=== PATIENT | female | born 1960 | race Caucasian/White ===

== ENCOUNTER 2021-05-09 12:12 | Outpatient (CLI) | payer OTHER, SELFPAY ==
--- NOTE | 2021-05-09 13:02 | ECG_ITS ---
Measurements Intervals [place] Rate: 64 P: 64 WA: 171 QRS: -17 QRSD: 102 T: 10 QT: 393 QTc: 406 Interpretive Statements SINUS RHYTHM POSSIBLE LEFT ATRIAL ENLARGEMENT [-0.1mV P WAVE IN V1/V2] INCOMPLETE RIGHT BUNDLE BRANCH BLOCK [90+ ms QRS DURATION, TERMINAL R IN V1/V2, 40+ ms S IN I/aVL/V4/V5/V6] NO PREVIOUS ECG AVAILABLE FOR COMPARISON Electronically Signed On 05-09-2021 14:35:16 CDT by Barak Emerson M.D.
[2021-05-09 14:35] LABS: Anion Gap 4 mmol/L (8-16); Blood Urea Nitrogen 20 mg/dL (7-17); Calcium 9.3 mg/dL (8.4-10.2); Carbon Dioxide 31 mmol/L (22-30); Chloride 104 mmol/L (98-107); Estimated Glomerular Filt Rate > 60; Glucose 99 mg/dL (65-110); Potassium 4.2 mmol/L (3.4-5.0); Sodium 139 mmol/L (137-145)
== END 2021-05-09 12:13 | disposition home or self-care (01) ==
LOC: ANHSURGERY 12:16
PROVIDERS: Anesthesiology; PCP Family Medicine; Visit Provider Surgery Plastic and Reconstructive Surgery
DX: Z01.818 Encounter for other preprocedural examination (principal); E11.9 Type 2 diabetes mellitus without complications; I45.19 Other right bundle-branch block
CPT/HCPCS: 36415; 80048; 93005

== ENCOUNTER 2021-05-17 00:20 | Day surgery (SDC) | payer OTHER, SELFPAY ==
[2021-05-05 14:31] VITALS: BMI 25.4
--- NOTE | 2021-05-05 14:36 | SUR.PREOP ---
Report to the Outpatient Waiting Room, entrance under the green pavilion located off [facility], at time 12:15_ on date 05/17/21_. OR Time: __14:15. - You and your visitor will be asked a series of questions to screen for COVID 19 for your protection. - A mask is required within the hospital. Preoperative COVID Testing Requirements: No COVID Test needed if: (proof is required; if not received patient will have Rapid Test prior to entry) - Patient has received COVID Vaccine at least 14 days prior to procedure date or - Patient has positive COVID test result within last 90 days of surgery date. COVID Test needed if above criteria is not met If not COVID vaccinated a COVID test must be conducted within 72 hours of surgery and patient is asked to isolate self from time of testing until procedure. You will go to the [facility] for your COVID testing. The [facility] Testing site is located at the corner of [address] [facility]. You will only be called if COVID results are positive and your surgeon may reschedule your elective surgery date. Patients may have clear liquids (water, carbonated beverages, clear teas, apple juice) until 3 hours prior to surgery with a maximum of 20 ounces. - No food from midnight until time of surgery - Infants may have breast milk until 4 hours before surgery, formula 6 hours prior to surgery. - Children will be allowed to drink immediately following surgery. If applicable, please bring a bottle or sippy cup to assist with drinking. Juice, water, soda, and popsicles are readily available. For infants on formula, please bring formula the day of surgery. Pacifiers are allowed. Take the following medications with a SIP of water the morning of surgery: _liothyronine Medications to discontinue per physician n/a Date to take last dose__n/a Please no make-up, nail english, hairspray, perfume, deodorant, or body powder the day of surgery. No jewelry (including any body piercings) or valuables the day of surgery, leave them at home. Please take a shower or bath the night before, or the morning of, surgery with an antibacterial soap. Wear comfortable, loose fitting clothing. Children are encouraged to wear pajamas. - Jewelry must be removed prior to entering the operating room. Rings and piercings that are not removed may be cut off. - The hospital will not accept responsibility for valuables. - Please leave all valuables, including medications, at home the day of surgery. If you are going home after surgery, a licensed otr driver must drive you home. - NO public transportation without another adult. - We recommend that an adult stay with you for 24 hours following discharge. - We also recommend that you do not drive, make important decision, drink alcoholic beverages, or take any drugs that were not prescribed by your health care provider for at least 24 hours after your discharge time. For Pediatric surgeries, we recommend two adults accompany the child home (only one inside the building at this time). One visitor will be allowed to accompany the patient into the hospital. Patients visitor will be instructed to remain with patient at all times or leave the building. We will allow the visitor to come back to the postoperative area when patient is ready. Follow any additional instructions given to you from your surgeon. Telephone instructions given to _rock page__and asked if any additional questions and then verbalized understanding. Patient advised to call surgeon office or pre surgery nurse liaison [phone] if any additional questions.
[2021-05-17] VITALS (9 sets, daily range): BP systolic 122–180; BP diastolic 58–90; PULSE 68–82; RESP 14–18; TEMP 36.4–37.1; O2SAT 92–100; BMI 25.4
--- NOTE | 2021-05-17 12:38 | WPDHPUPDATE1 ---
History and Physical Update Update Date/Time: 05/17/21 12:38 History and Physical has been reviewed, including an updated exam of the patient. There are NO changes in the patient's condition. Risks, benefits, and alternatives have been discussed and questions answered. Patient agrees to proceed with procedure.
[2021-05-17 12:39] LABS: Urine Cotinine NEGATIVE
--- NOTE | 2021-05-17 12:43 | P.PNAN_ITS ---
Anes - Initial Pre Proc Eval Procedure: Operation Date: 05/17/21 14:15 Proposed Procedures p Removal Bilateral Breast Implants, - Tye Nixon MD s Bilateral Breast Mastopexy - Tye Nixon MD Date/Time: 05/17/21 12:43 Surgeon: Tye Nixon MD Pre Op Diagnosis: hx of breast augmentation Patient Data Age: 61 Gender: F Height: 1.73 m Weight: 75.9 kg Allergies Allergy/AdvReac Type Severity Reaction Status Date / Time Penicillins Allergy Intermediate Hives Verified 05/17/21 12:37 Home Medications Medication Instructions Recorded Confirmed Type liothyronine 5 mcg tablet 5 mcg PO DAILY tablet 11/29/20 05/17/21 History metformin 500 mg tablet,extended 500 mg PO BID 11/29/20 05/17/21 History release 24 hr docusate sodium 100 mg capsule 100 mg PO DAILY #14 cap 05/12/21 Rx ondansetron 4 mg disintegrating 4 mg PO Q8H #21 tablet 05/12/21 Rx tablet hydrocodone 5 mg-acetaminophen 325 1 tablet PO Q6H PRN #30 tablet 05/13/21 05/13/21 Rx mg tablet Laboratory Tests 05/17/21 12:21 Cotinine Negative Patient hx anesthesia problems: none Family hx anesthesia problems: none Results Review: All pre-operative results and documents have been reviewed as part of the pre-operative evaluation. [facility] Past Medical History Medical History Diabetes Hypothyroid Social History Social History Smoking status: Never smoker Alcohol intake: current Drinks per week: 3 Alcohol use details: weekends Living arrangements: with family Spiritual care concerns: No Anes - Eval Final PreProcedure Day of Procedure 05/17/21 12:43 Patient weight: normal Heart: regular rate and rhythm Lungs: clear to auscultation Airway: Mallampati scale class II Neurological: alert and oriented Last oral intake: >/= 8 hours ASA classification: II Emergent: no Anesthetic plan: proceed Anesthesia type and monitoring: general LMA and standard monitoring Results Review: All pre-operative results and documents have been reviewed as part of the pre-operative evaluation. Informed Consent: The patient's anesthetic plan and its attendant risks and benefits were discussed with the patient/family/POA. Questions were solicited and answers provided to the satisfaction of the patient/family/POA.
--- NOTE | 2021-05-17 12:50 | SUR.PREOP ---
FEMALE RN IN ROOM WHILE DR HA VACA PT
--- NOTE | 2021-05-17 13:03 | W.PM.PROC2 ---
Procedure Note - Detailed Date of Procedure 05/17/21 Pre-op Diagnosis hx of breast augmentation Post-op Diagnosis Same Procedure Performed 1. Bilateral implant removal 2. Bilateral mastopexy Surgeon Tye Nixon MD Findings Inverted T Superior pedicle Description of Procedure Preoperatively the risks, benefits, alternatives were discussed in extensive detail. I wanted her to be very realistic risks as well as expectations. All questions were answered to her satisfaction. Consent obtained. She was taken to the operating room placed supine on the operating table. Anesthesia provided by anesthesiology and prepped and draped in standard sterile fashion. Surgical was taken. 1% lidocaine and 0.25% Marcaine with epinephrine was used to provide a field block. I incised vertically and dissection was continued down until the implant was identified. I incised the capsule and the implant was removed. No worrisome features. I elevated removed the majority of the anterior capsule which was sent to pathology. I tailor tacked the breast into place. Placed her in a sitting position to verify the markings. Marked out the nipple-areolar complex based on my preoperative planning and intraoperative observations of measurements which were in full agreement. This was at 38 mm. She was then placed supine. I de-epithelialized bilateral superior pedicle. De-epithelialized the inferior portion of the breast and elevated medial and lateral flaps. Tumescent was used for small volume at bilateral tail breast / anterior axillary fold for contouring. Once adequate time for hemostasis based on S.A.F.E. technique suction lipectomy was completed for total volume 60cc lipoaspirate using 4mm basket cannula. Copiously irrigated with 3 liters of saline on TUR tubing. I created auto augmentation flap which was based inferiorly and this was sutured to the chest wall with 2-0 PDS. It appeared to have good vascularity with bleeding distal edges of this autoaugmentation flap. I then tailor tacked the breast back into position. I closed along the IMF using 1 barbed suture followed by 3-0 Stratafix in a running subcuticular 4-0 Monocryl. Vertically with 2-0 PDS followed by 3-0 Monocryl in a running subcuticular 4-0 Monocryl. Around the areola with 3-0 Stratafix in a running subcuticular 4-0 Monocryl. Steri-Strips were placed. She was woken taken to PACU without difficulty. All instrument sponge counts were correct at the end of the case. Estimated Blood Loss 50 Drains No Packing No Pathology None sent Complications No immediate complications Condition Stable Disposition PACU
[2021-05-17] MEDS: LACTATED RINGERS 1,000 ML 30 ML IV CONT ×2 (13:07→15:31)
[2021-05-17 13:08] LABS: Glucose Point of Care 96 mg/dl (65-105)
[2021-05-17] MEDS: SCOPOLAMINE 1.5 MG PATCH TRANSDERM (13:11)
--- NOTE | 2021-05-17 13:15 | SUR.PREOP ---
GIVING PT IVF BOLUS 500ML PER ORDERS
[2021-05-17] MEDS: ceFAZolin 2 GM/D5W 50 ML 2 GM/50 ML BAG IVPB (13:21)
[2021-05-17] MEDS: BUPIVACAINE HCL 0.25% PF 30 ML VIAL INFILTRATE (13:30)
[2021-05-17] MEDS: TRANEXAMIC ACID 1,000MG/ISO100 1,000 MG/100 ML BAG 200 MG IVPB (13:35)
[2021-05-17] MEDS: LACTATED RINGERS IRRIG 1,000 ML, LIDOCAINE HCL 1% LOCAL INJ 50 ML, EPINEPHrine HCL INJ ... INFILTRATE (14:30)
[2021-05-17 15:46] LABS: Glucose Point of Care 118 mg/dl (65-105)
[2021-05-17] MEDS: fentaNYL CITRATE INJ (*CRX) 100 MCG/2 ML VIAL 25 MCG IV PUSH ×2 (16:10→16:19)
[2021-05-17] MEDS: oxyCODONE HCL (*CRX) 5 MG TAB IR PO (17:05)
== END 2021-05-17 18:00 | disposition home or self-care (01) ==
PROVIDERS: PCP Family Medicine; Visit Provider Surgery Plastic and Reconstructive Surgery
PROC: 0HPT0JZ Removal of Synthetic Substitute from Right Breast, Open Approach (ICD-10-PCS; CPT 19371; principal; 2021-05-17 14:15)
PROC: (CPT 19316; 2021-05-17 14:15)
DX: Z41.1 Encounter for cosmetic surgery (principal); E11.9 Type 2 diabetes mellitus without complications; E03.9 Hypothyroidism, unspecified; Z79.84 Long term (current) use of oral hypoglycemic drugs; Z79.899 Other long term (current) drug therapy
CPT/HCPCS: 19371; 19316; 80307; 82948; A9270; J0171; J0690; J1100; J1170; J2250; J2405; J2704; J3010; J7120

== ENCOUNTER 2022-10-09 12:21 | Outpatient (NON) | payer BC, SELFPAY | END 2022-10-09 12:22 | disposition home or self-care (01) | PROVIDERS: PCP Family Medicine; Visit Provider Nurse Practitioner | DX: C44.519 Basal cell carcinoma of skin of other part of trunk (principal) | CPT/HCPCS: 88305 ==

== ENCOUNTER 2022-11-20 07:00 | Outpatient (NON) | payer BC, SELFPAY | END 2022-11-20 07:01 | disposition home or self-care (01) | LOC: ANHLAB 11-22 12:10 | PROVIDERS: PCP Family Medicine; Visit Provider Nurse Practitioner | DX: C44.91 Basal cell carcinoma of skin, unspecified (principal) | CPT/HCPCS: 88305 ==

== ENCOUNTER 2022-11-23 10:09 | Outpatient (CLI) | payer BC, SELFPAY ==
[2022-11-23 18:39] LABS: Hematocrit 43.2 % (37.0-47.0); Hemoglobin 13.8 g/dL (12.0-15.0); Mean Corpuscular HGB Conc 31.9 g/dl (32-36); Mean Corpuscular Hemoglobin 30.5 pg (26-34); Mean Corpuscular Volume 95.6 fl (80-100); Mean Platelet Volume 12.4 fl (7.4-10.4); Platelet Count Result 169 k/mm3 (150-375); Red Blood Count 4.52 M/mm3 (4.2-5.4); Red Cell Distribution Width 12.4 % (11.5-14.5); White Blood Count 5.1 K/mm3 (4.5-10.0)
[2022-11-23 19:22] LABS: Alanine Aminotransferase 22 U/L (6-35); Albumin Level 4.6 g/dL (3.5-5.1); Alkaline Phosphatase 71 U/L (38-126); Anion Gap 5 mmol/L (8-16); Aspartate Amino Transferase 31 U/L (14-36); Bilirubin,Total 0.6 mg/dL (0.2-1.3); Blood Urea Nitrogen 20 mg/dL (7-17); Calcium 9.5 mg/dL (8.4-10.2); Carbon Dioxide 30 mmol/L (22-30); Chloride 103 mmol/L (98-107); Cholesterol 200 mg/dL (0-200); Estimated Glomerular Filt Rate > 60; Glucose 102 mg/dL (65-110); HDL Direct 84 mg/dL; Potassium 4.5 mmol/L (3.4-5.0); Sodium 138 mmol/L (137-145); Triglycerides 80 mg/dL (<150)
[2022-11-23 19:33] LABS: LDL Cholesterol Direct 85 mg/dL
[2022-11-23 20:24] LABS: Hemoglobin A1C 5.2 % (<5.7)
== END 2022-11-23 10:10 | disposition home or self-care (01) ==
LOC: ANHGOSHLAB 10:10
PROVIDERS: PCP Family Medicine; Visit Provider Family Medicine
DX: E03.9 Hypothyroidism, unspecified (principal); R73.03 Prediabetes; Z68.27 Body mass index [BMI] 27.0-27.9, adult; Z79.899 Other long term (current) drug therapy
CPT/HCPCS: 36415; 80053; 80061; 83036; 84443; 85027